=== PATIENT | male | born 1950 | race Caucasian/White ===

== ENCOUNTER 2018-09-08 13:26 | Inpatient (IN) | payer OTHER ==
[~2018-09-08] VITALS: Ht 160 cm; Wt 97.1 kg
[2018-09-08] MEDS ORDERED: NACL 0.9% 1,000 ML IV ONE (13:29)
[2018-09-08 13:33] VITALS: BP_SYST 130
[2018-09-08 14:03] LABS: BASOPHILS # (AUTO) 0.3 K/uL (0.0-0.2); BASOPHILS % (AUTO) 2.5 % (0.0-2.0); EOSINOPHILS # (AUTO) 0.2 K/uL (0.0-0.4); EOSINOPHILS % (AUTO) 1.1 % (0.0-4.0); HEMATOCRIT 42.8 % (36-54); HEMOGLOBIN 14.5 g/dL (14.0-18.0); LYMPHOCYTES # (AUTO) 1.4 K/uL (1.0-5.5); LYMPHOCYTES % (AUTO) 10.3 % (20.5-51.5); MEAN CORPUSCULAR HEMOGLOBIN 32 pg (27-31); MEAN CORPUSCULAR HGB CONC 34 % (32-36); MEAN CORPUSCULAR VOLUME 96 fL (79.0-98.0); MONOCYTES # (AUTO) 1.1 K/uL (0.0-1.0); MONOCYTES % (AUTO) 7.7 % (1.7-9.3); NEUTROPHILS # (AUTO) 10.9 K/uL (1.8-7.7); NEUTROPHILS % (AUTO) 78.4 % (40.0-70.0); PLATELET COUNT (AUTO) 248 K/uL (130-430); RED BLOOD CELL COUNT(AUTO) 4.49 MIL/uL (4.2-6.2); RED CELL DISTRIBUTION WIDTH 12.9 % (9.0-15.0); WHITE BLOOD COUNT (AUTO) 13.9 K/uL (4.8-10.8)
[2018-09-08 14:21] LABS: ANION GAP 7 (5-15); CALCIUM 9.4 mg/dL (8.4-11.0); CHLORIDE 102 mmol/L (98-107); CREATININE 1.07 mg/dL (0.55-1.30); GLUCOSE 105 mg/dL (70-99); POTASSIUM 3.6 mmol/L (3.5-5.1); SODIUM SERUM 136 mmol/L (136-145); UREA NITROGEN, BLOOD 30 mg/dL (8-21)
[2018-09-08 14:23] LABS: GFR AFRICAN AMERICAN 88 mL/min (>90)
[2018-09-08 14:26] LABS: INR 0.9 (0.80-1.20); PROTHROMBIN TIME 9.7 SECS (9.5-12.5)
[2018-09-08 14:27] LABS: ALANINE AMINOTRANSFERASE 50 U/L (12-78); ALBUMIN 3.3 g/dL (3.4-4.8); ASPARTATE AMINOTRANSFERASE 28 U/L (10-37); TOTAL BILIRUBIN 0.5 mg/dL (0.0-1.0)
[2018-09-08 14:28] LABS: ALCOHOL, BLOOD < 3 mg/dL (<10); LIPASE 155 U/L (73-393)
[2018-09-08 15:33] LABS: BILIRUBIN,URINE NEGATIVE (NEGATIVE); BLOOD, URINE NEGATIVE (NEGATIVE); CLARITY/URINE CLEAR (CLEAR); COLOR,URINE YELLOW (YELLOW); GLUCOSE,URINE NEGATIVE (NEGATIVE); KETONES,URINE NEGATIVE (NEGATIVE); LEUKOCYTE ESTERASE ,URINE NEGATIVE (NEGATIVE); NITRITE, URINE NEGATIVE (NEGATIVE); PH,URINE 5.5 (5.0-8.0); PROTEIN URINE NEGATIVE (NEGATIVE); UROBILINOGEN,URINE 0.2 (0.2-1.0)
[2018-09-08 15:53] LABS: BARBITURATE, URINE NEGATIVE (NEG <=200); BENZODIAZEPINE, URINE NEGATIVE (NEG <=150); CANNABINOID, URINE POSITIVE (NEG <=50); COCAINE, URINE NEGATIVE (NEG <=150); METHAMPHETAMINES SCREEN,URINE NEGATIVE (NEG <=500); OPIATE, URINE NEGATIVE (NEG <=100); PHENCYCLIDINE SCREEN,URINE NEGATIVE (NEG <=25); UR TRICYCLIC ANTIDEPRESSANTS NEGATIVE (NEG <=300); URINE AMPHETAMINE NEGATIVE (NEG <=500); URINE METHADONE NEGATIVE (NEG <=200); URINE OXYCODONE SCREEN NEGATIVE (NEG <=100); URINE PROPOXYPHENE SCREEN NEGATIVE (NEG <=300)
[2018-09-08] MEDS ORDERED: ACETAMINOPHEN 325 MG TABLET PO PRN (16:30)
[2018-09-08] MEDS ORDERED: ONDANSETRON HCL 4 MG/2 ML VIAL IVP PRN (16:30)
[2018-09-08] MEDS ORDERED: LOSA50TA3 PO (16:46)
[2018-09-08] MEDS ORDERED: FURO-150 PO (16:46)
[2018-09-08] MEDS ORDERED: PRO40 PO (16:49)
[2018-09-08] MEDS ORDERED: NIFE60TA83 PO (16:49)
[2018-09-08] MEDS ORDERED: TAMS-11 PO (16:49)
[2018-09-08] MEDS ORDERED: SILD50TA PO (16:49)
[2018-09-08] MEDS ORDERED: LOVA20TA2 PO (16:49)
[2018-09-08] MEDS ORDERED: OXYB10TA4 PO (16:49)
[2018-09-08 16:59] VITALS: BP_SYST 146
[2018-09-08 19:18] VITALS: BP_SYST 136
[2018-09-08] MEDS: ceFAZolin SODIUM 1 GM in D5W 50 ML IV SCH (22:00)
[2018-09-08] MEDS ORDERED: CEFAZOLIN 1 GM IVPB PREMIX 100 ML IV ONE (22:37)
[2018-09-09 00:15] VITALS: BP_SYST 120
[2018-09-09] MEDS: ceFAZolin SODIUM 1 GM in D5W 50 ML IV SCH ×3 (05:21→22:42)
[2018-09-09 08:00] VITALS: BP_SYST 127
[2018-09-09] MEDS: ENOXAPARIN SODIUM 40 MG/0.4 ML SYRINGE SUBCUT SCH (08:47)
[2018-09-09] MEDS ORDERED: OXYBUTYNIN CHLORIDE 5 MG XL TAB PO SCH (09:30)
[2018-09-09] MEDS ORDERED: LOVASTATIN 20 MG TABLET PO SCH (09:30)
[2018-09-09] MEDS ORDERED: FUROSEMIDE 40 MG/4 ML VIAL IVP ONE (10:00)
[2018-09-09] MEDS ORDERED: SIMVASTATIN 10 MG TABLET PO SCH (10:00)
[2018-09-09] MEDS ORDERED: NIFEDIPINE 60 MG TABLET.SA (PROCARDIA XL 60 MG) PO ONE (10:30)
[2018-09-09] MEDS ORDERED: SIMVASTATIN 10 MG TABLET PO ONE (10:30)
[2018-09-09] MEDS ORDERED: PANTOPRAZOLE SODIUM 40 MG TAB PO ONE (10:30)
[2018-09-09] MEDS ORDERED: OXYBUTYNIN CHLORIDE 5 MG TABLET PO ONE (10:30)
[2018-09-09] MEDS ORDERED: FAMOTIDINE 20 MG TABLET PO ONE (10:30)
[2018-09-09] MEDS ORDERED: LOSARTAN POTASSIUM 50 MG TABLET (COZAAR) PO ONE (10:30)
[2018-09-09] MEDS ORDERED: VANCOMYCIN HCL 750 MG in NS 250 ML IV ONE (10:30)
[2018-09-09] MEDS: OXYBUTYNIN CHLORIDE 5 MG TABLET PO SCH ×2 (10:52→21:44)
[2018-09-09] MEDS: LOSARTAN POTASSIUM 50 MG TABLET (COZAAR) PO SCH (10:53)
[2018-09-09] MEDS: NIFEDIPINE 60 MG TABLET.SA (PROCARDIA XL 60 MG) PO SCH (10:53)
[2018-09-09] MEDS: FAMOTIDINE 20 MG TABLET PO SCH ×2 (10:53→21:45)
[2018-09-09] MEDS: PANTOPRAZOLE SODIUM 40 MG TAB PO SCH (11:34)
[2018-09-09 12:00] VITALS: BP_SYST 139
[2018-09-09 16:00] VITALS: BP_SYST 137
[2018-09-09 20:00] VITALS: BP_SYST 137
[2018-09-09] MEDS ORDERED: CEFAZOLIN 1 GM IVPB PREMIX 100 ML IV ONE (22:00)
[2018-09-10 04:19] VITALS: BP_SYST 126
[2018-09-10] MEDS: ceFAZolin SODIUM 1 GM in D5W 50 ML IV SCH ×3 (06:14→21:38)
[2018-09-10 08:03] VITALS: BP_SYST 141
[2018-09-10] MEDS ORDERED: VANCOMYCIN HCL 1 GM/NS PREMIX 250 ML IV ONE (09:00)
[2018-09-10] MEDS: ENOXAPARIN SODIUM 40 MG/0.4 ML SYRINGE SUBCUT SCH (10:12)
[2018-09-10] MEDS: OXYBUTYNIN CHLORIDE 5 MG TABLET PO SCH ×2 (10:12→20:34)
[2018-09-10] MEDS: LOSARTAN POTASSIUM 50 MG TABLET (COZAAR) PO SCH (10:13)
[2018-09-10] MEDS: NIFEDIPINE 60 MG TABLET.SA (PROCARDIA XL 60 MG) PO SCH (10:14)
[2018-09-10] MEDS: TAMSULOSIN HCL 0.4 MG CAP PO SCH (10:14)
[2018-09-10] MEDS: PANTOPRAZOLE SODIUM 40 MG TAB PO SCH (10:14)
[2018-09-10] MEDS: FAMOTIDINE 20 MG TABLET PO SCH ×2 (10:14→20:34)
[2018-09-10] MEDS: FUROSEMIDE 20 MG TABLET PO SCH (10:14)
[2018-09-10 12:37] VITALS: BP_SYST 142
[2018-09-10 16:56] VITALS: BP_SYST 136
[2018-09-10] MEDS ORDERED: SIMVASTATIN 10 MG TABLET PO SCH (18:00)
[2018-09-10 20:30] VITALS: BP_SYST 149
[2018-09-11 01:49] VITALS: BP_SYST 108
[2018-09-11] MEDS: ceFAZolin SODIUM 1 GM in D5W 50 ML IV SCH ×2 (05:19→14:48)
[2018-09-11 07:35] LABS: BASOPHILS % (AUTO) 0.1 % (0.0-2.0); EOSINOPHILS # (AUTO) 0.3 K/uL (0.0-0.4); EOSINOPHILS % (AUTO) 2.5 % (0.0-4.0); HEMATOCRIT 42.8 % (36-54); LYMPHOCYTES # (AUTO) 1.4 K/uL (1.0-5.5); LYMPHOCYTES % (AUTO) 13.7 % (20.5-51.5); MEAN CORPUSCULAR HEMOGLOBIN 32 pg (27-31); MEAN CORPUSCULAR HGB CONC 33 % (32-36); MEAN CORPUSCULAR VOLUME 97 fL (79.0-98.0); MONOCYTES # (AUTO) 0.6 K/uL (0.0-1.0); MONOCYTES % (AUTO) 5.6 % (1.7-9.3); NEUTROPHILS # (AUTO) 8.1 K/uL (1.8-7.7); NEUTROPHILS % (AUTO) 78.1 % (40.0-70.0); PLATELET COUNT (AUTO) 387 K/uL (130-430); RED BLOOD CELL COUNT(AUTO) 4.41 MIL/uL (4.2-6.2); RED CELL DISTRIBUTION WIDTH 12.4 % (9.0-15.0); WHITE BLOOD COUNT (AUTO) 10.4 K/uL (4.8-10.8)
[2018-09-11 07:37] LABS: CALCIUM 9.1 mg/dL (8.4-11.0); CREATININE 0.89 mg/dL (0.55-1.30); POTASSIUM 3.7 mmol/L (3.5-5.1); TOTAL BILIRUBIN 0.3 mg/dL (0.0-1.0)
[2018-09-11] MEDS ORDERED: FUROSEMIDE 40 MG/4 ML VIAL IVP ONE (08:00)
[2018-09-11 08:02] VITALS: BP_SYST 130
[2018-09-11] MEDS: TAMSULOSIN HCL 0.4 MG CAP PO SCH (09:09)
[2018-09-11] MEDS: FUROSEMIDE 20 MG TABLET PO SCH (09:10)
[2018-09-11] MEDS: PANTOPRAZOLE SODIUM 40 MG TAB PO SCH (09:10)
[2018-09-11] MEDS: LOSARTAN POTASSIUM 50 MG TABLET (COZAAR) PO SCH (09:10)
[2018-09-11] MEDS: FAMOTIDINE 20 MG TABLET PO SCH (09:10)
[2018-09-11] MEDS: NIFEDIPINE 60 MG TABLET.SA (PROCARDIA XL 60 MG) PO SCH (09:11)
[2018-09-11] MEDS: ENOXAPARIN SODIUM 40 MG/0.4 ML SYRINGE SUBCUT SCH (09:14)
[2018-09-11] MEDS: OXYBUTYNIN CHLORIDE 5 MG TABLET PO SCH (09:16)
[2018-09-11 12:14] VITALS: BP_SYST 132
[2018-09-11 16:22] VITALS: BP_SYST 133
[2018-09-11 17:32] VITALS: BP_SYST 133
== END 2018-09-11 18:30 | disposition home or self-care (01) | DRG 872 ==
LOC: SED 13:26 → SMU 16:26
PROVIDERS: ADMIT Internal Medicine; ATTEND Internal Medicine
DX: A41.9 Sepsis, unspecified organism (principal); L03.115 Cellulitis of right lower limb; E66.9 Obesity, unspecified; E78.5 Hyperlipidemia, unspecified; I10 Essential (primary) hypertension; I87.2 Venous insufficiency (chronic) (peripheral); I73.9 Peripheral vascular disease, unspecified; Z68.37 Body mass index [BMI] 37.0-37.9, adult; N40.0 Benign prostatic hyperplasia without lower urinary tract symptoms
CPT/HCPCS: 36415; 71045; 73700-TC; 80053; 80307; 81003; 82550-TC; 83690-TC; 84484; 85025; 85379; 85610-TC; 85730-TC; 93005; 93971; 99285; G0482; J0690; J1650; J1940; J3370; J7050; J7060

== ENCOUNTER 2019-08-20 08:37 | Inpatient (IN) | payer OTHER ==
[~2019-08-20] VITALS: Ht 160 cm; Wt 95.3 kg
[~2019-08-20 08:37] MED LIST: FURO-150 PO; LOSA50TA3 PO; LOVA20TA2 PO; NIFE60TA83 PO; OXYB10TA4 PO; PRO40 PO; SILD50TA PO; TAMS-11 PO
[2019-08-20 08:48] VITALS: BP_SYST 143
--- NOTE | 2019-08-20 08:50 | NUR ---
pt arrives from home w/ c/o cough and congestion x 2 weeks. Pt has been using over the counter meds w/ out relief. Pt does have hx of COPD. States he has an oxygen tank at home, however, does not use it. O2 sat is 87%. o2 2l via NC placed.
--- NOTE | 2019-08-20 09:02 | NUR ---
ER at bedside examining patient.
--- NOTE | 2019-08-20 09:30 | NUR ---
# 22 gauge angiocath placed to LAC Use of asceptic technique. Opsite placed over site. Blood return noted. Blood for lab drawn from site. Flushed with 10 cc of normal saline. No evidence of infiltration noted. Patient tolerated well.
[2019-08-20 09:39] LABS: BASOPHILS % (AUTO) 0.4 % (0.0-2.0); EOSINOPHILS # (AUTO) 0.2 K/uL (0.0-0.4); EOSINOPHILS % (AUTO) 2.7 % (0.0-4.0); HEMATOCRIT 47.1 % (36-54); HEMOGLOBIN 15.8 g/dL (14.0-18.0); LYMPHOCYTES # (AUTO) 1.4 K/uL (1.0-5.5); LYMPHOCYTES % (AUTO) 16.8 % (20.5-51.5); MEAN CORPUSCULAR HEMOGLOBIN 34 pg (27-31); MEAN CORPUSCULAR HGB CONC 34 % (32-36); MEAN CORPUSCULAR VOLUME 100 fL (79.0-98.0); MONOCYTES # (AUTO) 0.4 K/uL (0.0-1.0); MONOCYTES % (AUTO) 4.9 % (1.7-9.3); NEUTROPHILS # (AUTO) 6.2 K/uL (1.8-7.7); NEUTROPHILS % (AUTO) 75.2 % (40.0-70.0); PLATELET COUNT (AUTO) 190 K/uL (130-430); RED BLOOD CELL COUNT(AUTO) 4.72 MIL/uL (4.2-6.2); RED CELL DISTRIBUTION WIDTH 13.6 % (9.0-15.0); WHITE BLOOD COUNT (AUTO) 8.3 K/uL (4.8-10.8)
[2019-08-20 09:48] LABS: CALCIUM 8.9 mg/dL (8.4-11.0); CREATININE 0.73 mg/dL (0.55-1.30); POTASSIUM 3.6 mmol/L (3.5-5.1)
[2019-08-20 09:54] LABS: ALBUMIN 4.1 g/dL (3.4-4.8); TOTAL BILIRUBIN 0.4 mg/dL (0.0-1.0)
[2019-08-20] MEDS ORDERED: IPRATROPIUM/ALBUTEROL SULFATE 3 ML AMPUL.NEB (DUONEB) INH ONE (10:00)
--- NOTE | 2019-08-20 10:07 | NUR ---
Medication reconciliation completed with information provided by patient. Any prior medication reconciliation on file was reviewed and corrected.
--- NOTE | 2019-08-20 11:21 | NUR ---
Patient will be admitted to care of Dr. Varghese. Admitted to telemetry unit. Will go to room 126A. Belongings list completed. Summary report printed. Report will be given at bedside.
[2019-08-20] MEDS ORDERED: methylPREDNISolone SOD SUCC/PF 62.5 MG/ML VIAL IVP ONE (11:30)
--- NOTE | 2019-08-20 11:42 | NUR ---
ADMISSION: Received from ER on a [facility] with the diagnosis of COPD Exacerbation. Patient Oriented x4, ambulatory from [facility] to be with steady gait. Denies shortness of breath. Oriented to room. Call light within reach.
[2019-08-20 11:46] VITALS: BP_SYST 163
--- NOTE | 2019-08-20 11:48 | NUR ---
Note undone in EDM - 08/20/19 at 1159 by AYALA Patient to be transferred to []. Is being transferred due to higher level of care. Receiving facility has accepting physician and available space. ER physician has signed transfer form. Patient or responsible alliance party has agreed to transfer and signed form. Patient belongings inventoried and will be sent with patient. Copy of nursing notes, lab reports, EKG, Physicians Orders and X-rays to be sent with patient. Report called to [] at receiving facility. Receiving physician is []. [] ambulance service has been called for transfer. ETA is [].
--- NOTE | 2019-08-20 11:48 | NUR ---
Patient will be admitted to care of Dr. alcala. Admitted to tele unit. Will go to room 126-a Belongings list completed. Summary report printed. Bedside report given to Ysabel
--- NOTE | 2019-08-20 12:00 | NUR ---
Note Received report from Ysabel rene RN. Pt and his were oriented to nursing routines and procedures. Call light was given to pt with instructions on how to use it. Pt had tele unit attached on admission to floor.
--- NOTE | 2019-08-20 12:42 | NUR ---
CONSULT PULMONOLOGY COPD EXACERBATION DR NOVOA [phone] S/W ANEL EXCHANGE
[2019-08-20] MEDS ORDERED: ALBUTEROL SULFATE 0.083% 2.5 MG/3 ML VIAL.NEB INH PRN (15:15)
[2019-08-20] MEDS ORDERED: IPRATROPIUM BROM 0.5 MG/2.5 ML VIAL.NEB (ATROVENT) INH PRN (15:15)
[2019-08-20 16:00] VITALS: BP_SYST 159
[2019-08-20] MEDS ORDERED: NIFEDIPINE 30 MG TAB.ER.24 PO ONE (16:15)
[2019-08-20] MEDS ORDERED: LOSARTAN POTASSIUM 50 MG TABLET (COZAAR) PO ONE (16:15)
[2019-08-20 16:36] VITALS: BP_SYST 159
[2019-08-20] MEDS: cefTRIAXone 1 GM in D5W 50 ML IV SCH (16:40)
[2019-08-20] MEDS: AZITHROMYCIN 500 MG in NS 250 ML IV SCH (17:31)
[2019-08-20] MEDS: TAMSULOSIN HCL 0.4 MG CAP PO SCH (17:31)
--- NOTE | 2019-08-20 17:45 | NUR ---
Note Pt has been sitting up in BS chair off and on all shift. IVPB antibiotics infusing well through right AC IV site. Pt is independent in ambulating to restroom or in/out of bed. Pt had US Venous Doppler of Bilateral lower extremities done at bedside. No needs noted. Call light within reach.
--- NOTE | 2019-08-20 18:40 | NUR ---
Note Pt sitting up in BS chair, states he will eat his dinner in a little while. No SOB/resp distress or pain/discomfort noted at this time. Pt has O2 at 2L/nc on all shift. Tele unit attached and intact at this time. Pt was checked on q1' and PRN all shift for needs and care. IVPB antibiotics infusing well through right AC IV site. No needs noted at this time. Call light within reach.
--- NOTE | 2019-08-20 19:15 | NUR ---
CHANGE OF SHIFT; pt. up in chair when received. IV antibiotic still infusing. denies any pain at this time.O2 on @ 2l/nc. instructed to call and use of call light when help needed and verbalized understanding. will assess later.
[2019-08-20] MEDS: IPRATROPIUM BROM 0.5 MG/2.5 ML VIAL.NEB (ATROVENT) INH SCH (20:11)
[2019-08-20] MEDS: ALBUTEROL SULFATE 0.083% 2.5 MG/3 ML VIAL.NEB INH SCH (20:12)
[2019-08-20 20:30] VITALS: BP_SYST 141
--- NOTE | 2019-08-20 20:30 | NUR ---
NOTES: remain sitting, awake, alert and oriented. breathing treatment was just done, occ. bouts of non productive cough noted. moves all extremities well, noted swelling on lower extremities. O@ continuous. on cardiac pattern on sinus rhythm. IV lock on rt. antecubital.call light within reach.
--- NOTE | 2019-08-20 22:00 | NUR ---
NOTES: pt. still up in chair, watching tv. due med given. pt. needs attended.
[2019-08-20] MEDS: methylPREDNISolone SOD SUCC/PF 62.5 MG/ML VIAL IVP SCH (22:41)
--- NOTE | 2019-08-21 | NUR ---
NOTES: still awake, no complaints. call light at bedside.
[2019-08-21 00:30] VITALS: BP_SYST 131
[2019-08-21] MEDS: IPRATROPIUM BROM 0.5 MG/2.5 ML VIAL.NEB (ATROVENT) INH SCH ×4 (01:24→20:36)
[2019-08-21] MEDS: ALBUTEROL SULFATE 0.083% 2.5 MG/3 ML VIAL.NEB INH SCH ×4 (01:24→20:36)
--- NOTE | 2019-08-21 02:15 | NUR ---
NOTES: made rounds and pt. in bed sleeping. no acute distress. cardiac pattern unchanged.
--- NOTE | 2019-08-21 04:30 | NUR ---
NOTES: condition unchanged. pt. sound asleep.
--- NOTE | 2019-08-21 06:00 | NUR ---
NOTES: awakened for due med. no complaints manifested.
[2019-08-21] MEDS: methylPREDNISolone SOD SUCC/PF 62.5 MG/ML VIAL IVP SCH ×3 (06:39→22:00)
--- NOTE | 2019-08-21 06:45 | NUR ---
CLOSING NOTES; pt. been sleeping, IV lock flushed and keep patent. repositioned self for comfort. call light within reach. for further care and observation. will endorse to day shift.
--- NOTE | 2019-08-21 07:30 | NUR ---
had breathing treatment on board noted.
[2019-08-21 07:45] VITALS: BP_SYST 138
[2019-08-21] MEDS: NIFEDIPINE 30 MG TAB.ER.24 PO SCH (08:31)
[2019-08-21] MEDS: LOSARTAN POTASSIUM 50 MG TABLET (COZAAR) PO SCH (08:31)
--- NOTE | 2019-08-21 08:32 | NUR ---
had eaten breakfast 85% of food consumed. stable sitting on the chair. no sob noted.
--- NOTE | 2019-08-21 08:34 | NUR ---
due medication given at this time.
--- NOTE | 2019-08-21 10:00 | NUR ---
sitting on the chair. no sob noted. watching tv.
--- NOTE | 2019-08-21 12:00 | NUR ---
had lunch eat 80% food
[2019-08-21 13:16] VITALS: BP_SYST 149
--- NOTE | 2019-08-21 14:45 | NUR ---
solumedrol 60 mg iv given. made comfortable. assists on adls.
[2019-08-21] MEDS: cefTRIAXone 1 GM in D5W 50 ML IV SCH (16:25)
--- NOTE | 2019-08-21 16:29 | NUR ---
rocephin iv given at this time. patient sleeping. non productive cough noted.
[2019-08-21 17:14] VITALS: BP_SYST 134
[2019-08-21] MEDS: TAMSULOSIN HCL 0.4 MG CAP PO SCH (17:28)
[2019-08-21] MEDS: AZITHROMYCIN 500 MG in NS 250 ML IV SCH (17:29)
--- NOTE | 2019-08-21 17:30 | NUR ---
azithromycin iv given at this time. assists to the bathroom.
--- NOTE | 2019-08-21 18:40 | NUR ---
start to have dinner at this time. waiting for the to come.
--- NOTE | 2019-08-21 19:20 | NUR ---
endorsed to incoming nurse Lucila QUICK
--- NOTE | 2019-08-21 19:25 | NUR ---
CHANGE OF SHIFT; pt. up in chair when received, with visitor at bedside. denies any shortness of breath. no acute distress. call light within reach. will assess later.
[2019-08-21 20:00] VITALS: BP_SYST 132
--- NOTE | 2019-08-21 20:00 | NUR ---
NOTES: IV lock, flushed, dressing intact. VS checked, O2 sat 92-93%, placed O@ back @ 2l/nc, instructed on deep breathing. bouts of non productive cough. ambulates to the restroom. needs attended. on quality assurance monitor body and shows sinus rhythm. call light within reach.
--- NOTE | 2019-08-21 22:09 | NUR ---
NOTES: still up in chair,playing solitaire. due med given. noted bouts of no productive cough. O2 on @ 2l/nc.
--- NOTE | 2019-08-22 | NUR ---
NOTES: pt. back to bed. dozing off.
--- NOTE | 2019-08-22 01:30 | NUR ---
NOTES: awakened, needs to change battery on his tele box, up in chair and VS checked.
[2019-08-22 01:39] VITALS: BP_SYST 128
[2019-08-22] MEDS: ALBUTEROL SULFATE 0.083% 2.5 MG/3 ML VIAL.NEB INH SCH ×3 (02:10→13:47)
[2019-08-22] MEDS: IPRATROPIUM BROM 0.5 MG/2.5 ML VIAL.NEB (ATROVENT) INH SCH ×3 (02:10→13:47)
--- NOTE | 2019-08-22 04:00 | NUR ---
NOTES: condition unchanged . continue to monitor. pt. sleeping.
--- NOTE | 2019-08-22 06:00 | NUR ---
NOTES: remain sleeping, no acute distress.
[2019-08-22] MEDS: methylPREDNISolone SOD SUCC/PF 62.5 MG/ML VIAL IVP SCH ×2 (06:42→14:43)
--- NOTE | 2019-08-22 06:44 | NUR ---
CLOSING NOTES; pt. awkened for due medication. IV lock patent and flushing good. no complaints noted. still with occ. bout of non productive cough. for further assistance, will endorse to day shift.
--- NOTE | 2019-08-22 07:15 | NUR ---
[facility] aaox 4. has oxygen 2 lnc. breathing even and unlabored. has breathing treatment on board. abdomen soft and non distended. has iv access rt ac #22. saline lock. no sob nor pain noted. bed low position, alarmed and locked. call lights within reach. instructed to call for assistance.
--- NOTE | 2019-08-22 08:00 | NUR ---
having breakfast at this time. no sob noted. no complained made so far.
[2019-08-22 08:11] VITALS: BP_SYST 139
[2019-08-22] MEDS: LOSARTAN POTASSIUM 50 MG TABLET (COZAAR) PO SCH (08:28)
[2019-08-22] MEDS: NIFEDIPINE 30 MG TAB.ER.24 PO SCH (08:28)
--- NOTE | 2019-08-22 10:00 | NUR ---
due medication given as ordered.
[2019-08-22 12:00] VITALS: BP_SYST 139
--- NOTE | 2019-08-22 12:00 | NUR ---
had lunch on the bedside. while watching tv.
--- NOTE | 2019-08-22 14:00 | NUR ---
watching tv. no complained made so far.
[2019-08-22] MEDS ORDERED: PRED20TA PO (14:53)
[2019-08-22] MEDS ORDERED: ALBU2.5V7 INH (14:53)
[2019-08-22] MEDS ORDERED: IPRA0.2S53 INH (14:53)
[2019-08-22] MEDS ORDERED: AMOX-426 PO (14:53)
[2019-08-22] MEDS: cefTRIAXone 1 GM in D5W 50 ML IV SCH (14:53)
[2019-08-22] MEDS: AZITHROMYCIN 500 MG in NS 250 ML IV SCH (15:56)
[2019-08-22 16:04] VITALS: BP_SYST 134
[2019-08-22 16:30] VITALS: BP_SYST 140
--- NOTE | 2019-08-22 16:30 | NUR ---
equipment monitor phototypesetting removed. scdh i d band removed.
--- NOTE | 2019-08-22 17:00 | NUR ---
discharge summary signed by the patient. discharge instruction given to the patient follow up care Dr Toi castillo and medication with indication, dose, frequency and time and side effects.
--- NOTE | 2019-08-22 17:18 | NUR ---
REFUSED TO HAVE FLU SHOT DUE TO COUGHING.
--- NOTE | 2019-08-22 17:21 | NUR ---
awaiting for the family to pick him up
--- NOTE | 2019-08-22 18:00 | NUR ---
family mixing picker tender at this time. and had dinner. left walking refused to have wheelchair. said i am okay and stable. patient went home. manager cardiac cath, scdh i d band and iv access removed at this time.
== END 2019-08-22 18:00 | disposition home or self-care (01) | DRG 189 ==
LOC: SED 08:37 → STU 11:13
PROVIDERS: ADMIT Internal Medicine Hospice and Palliative Medicine; ATTEND Internal Medicine Hospice and Palliative Medicine
DX: J96.21 Acute and chronic respiratory failure with hypoxia (principal); J44.1 Chronic obstructive pulmonary disease with (acute) exacerbation; I10 Essential (primary) hypertension; E66.01 Morbid (severe) obesity due to excess calories; E78.5 Hyperlipidemia, unspecified; F12.90 Cannabis use, unspecified, uncomplicated; G47.33 Obstructive sleep apnea (adult) (pediatric); Z82.49 Family history of ischemic heart disease and other diseases of the circulatory system; Z83.3 Family history of diabetes mellitus; Z91.19 Patient's noncompliance with other medical treatment and regimen; Z99.81 Dependence on supplemental oxygen; Z79.899 Other long term (current) drug therapy; Z68.37 Body mass index [BMI] 37.0-37.9, adult
CPT/HCPCS: 36415; 36600; 71045; 80053; 82550-TC; 82803-TC; 83605; 83880; 84484; 85025; 87040-TC; 93005; 93306; 93970; 94640; 94760; 96374; 99285; G0378; J0456; J0696; J2930; J7050; J7060; J7613; J7620

== ENCOUNTER 2019-11-15 18:56 | Emergency (ER) | payer OTHER ==
[~2019-11-15] VITALS: Ht 160 cm; Wt 95.3 kg
[~2019-11-15 18:56] MED LIST changes: +ALBU2.5V7 INH; +AMOX-426 PO; -FURO-150 PO; +IPRA0.2S53 INH; -OXYB10TA4 PO; +PRED20TA PO; -PRO40 PO; -SILD50TA PO
[2019-11-15 19:26] VITALS: BP_SYST 157
[2019-11-15 21:53] LABS: BASOPHILS % (AUTO) 0.4 % (0.0-2.0); EOSINOPHILS # (AUTO) 0.4 K/uL (0.0-0.4); EOSINOPHILS % (AUTO) 4.6 % (0.0-4.0); HEMATOCRIT 45.5 % (36-54); HEMOGLOBIN 15.3 g/dL (14.0-18.0); LYMPHOCYTES # (AUTO) 1.3 K/uL (1.0-5.5); LYMPHOCYTES % (AUTO) 16.3 % (20.5-51.5); MEAN CORPUSCULAR HEMOGLOBIN 33 pg (27-31); MEAN CORPUSCULAR HGB CONC 34 % (32-36); MEAN CORPUSCULAR VOLUME 99 fL (79.0-98.0); MONOCYTES # (AUTO) 0.5 K/uL (0.0-1.0); NEUTROPHILS # (AUTO) 5.5 K/uL (1.8-7.7); NEUTROPHILS % (AUTO) 71.7 % (40.0-70.0); PLATELET COUNT (AUTO) 206 K/uL (130-430); RED BLOOD CELL COUNT(AUTO) 4.62 MIL/uL (4.2-6.2); RED CELL DISTRIBUTION WIDTH 13.4 % (9.0-15.0); WHITE BLOOD COUNT (AUTO) 7.7 K/uL (4.8-10.8)
[2019-11-15 22:02] LABS: CALCIUM 8.9 mg/dL (8.4-11.0); CREATININE 0.8 mg/dL (0.55-1.30)
[2019-11-15 22:08] LABS: ALBUMIN 3.9 g/dL (3.4-4.8); TOTAL BILIRUBIN 0.4 mg/dL (0.0-1.0)
[2019-11-16] MEDS ORDERED: VANCOMYCIN HCL 1,000 MG in NS 250 ML IV ONE (00:15)
[2019-11-16 01:08] LABS: BILIRUBIN,URINE NEGATIVE (NEGATIVE); BLOOD, URINE NEGATIVE (NEGATIVE); CLARITY/URINE CLEAR (CLEAR); COLOR,URINE YELLOW (YELLOW); GLUCOSE,URINE NEGATIVE (NEGATIVE); KETONES,URINE NEGATIVE (NEGATIVE); LEUKOCYTE ESTERASE ,URINE NEGATIVE (NEGATIVE); NITRITE, URINE NEGATIVE (NEGATIVE); PROTEIN URINE NEGATIVE (NEGATIVE); UROBILINOGEN,URINE 0.2 (0.2-1.0)
[2019-11-16] MEDS ORDERED: CEPHALEXIN 125 MG/5 ML, 100 ML BTL PO ONE (01:15)
[2019-11-16 01:19] VITALS: BP_SYST 146
[2019-11-16] MEDS ORDERED: CEPHALEXIN 500 MG CAPSULE ONE (01:31)
== END 2019-11-16 01:19 | disposition home or self-care (01) ==
LOC: SED 18:56
DX: L03.116 Cellulitis of left lower limb (principal); J44.9 Chronic obstructive pulmonary disease, unspecified; I10 Essential (primary) hypertension; E78.5 Hyperlipidemia, unspecified; Z79.899 Other long term (current) drug therapy
CPT/HCPCS: 36415; 73590-TC; 80053; 81003; 83605; 83880; 84484; 85025; 87040-TC; 93005; 93971; 99285

== ENCOUNTER 2019-11-29 20:12 | Inpatient (IN) | payer OTHER ==
[~2019-11-29] VITALS: Ht 160 cm; Wt 101.6 kg
[2019-11-29 20:30] VITALS: BP_SYST 132
[2019-11-29] MEDS ORDERED: methylPREDNISolone SOD SUCC/PF 62.5 MG/ML VIAL IM ONE (22:30)
[2019-11-29 22:43] LABS: BASOPHILS % (AUTO) 0.2 % (0.0-2.0); EOSINOPHILS # (AUTO) 1.3 K/uL (0.0-0.4); EOSINOPHILS % (AUTO) 13.4 % (0.0-4.0); HEMOGLOBIN 15.3 g/dL (14.0-18.0); LYMPHOCYTES # (AUTO) 0.8 K/uL (1.0-5.5); LYMPHOCYTES % (AUTO) 7.8 % (20.5-51.5); MEAN CORPUSCULAR HEMOGLOBIN 33 pg (27-31); MEAN CORPUSCULAR HGB CONC 33 % (32-36); MEAN CORPUSCULAR VOLUME 100 fL (79.0-98.0); MONOCYTES % (AUTO) 10.2 % (1.7-9.3); NEUTROPHILS # (AUTO) 6.6 K/uL (1.8-7.7); NEUTROPHILS % (AUTO) 68.4 % (40.0-70.0); PLATELET COUNT (AUTO) 169 K/uL (130-430); RED CELL DISTRIBUTION WIDTH 13.8 % (9.0-15.0); WHITE BLOOD COUNT (AUTO) 9.6 K/uL (4.8-10.8)
[2019-11-29 22:55] LABS: CALCIUM 8.4 mg/dL (8.4-11.0); CREATININE 1.06 mg/dL (0.55-1.30); POTASSIUM 4.2 mmol/L (3.5-5.1)
[2019-11-29 23:06] LABS: ALBUMIN 3.2 g/dL (3.4-4.8); TOTAL BILIRUBIN 0.5 mg/dL (0.0-1.0)
[2019-11-30 01:20] LABS: BILIRUBIN,URINE NEGATIVE (NEGATIVE); BLOOD, URINE NEGATIVE (NEGATIVE); CLARITY/URINE CLEAR (CLEAR); COLOR,URINE YELLOW (YELLOW); GLUCOSE,URINE NEGATIVE (NEGATIVE); KETONES,URINE NEGATIVE (NEGATIVE); LEUKOCYTE ESTERASE ,URINE NEGATIVE (NEGATIVE); NITRITE, URINE NEGATIVE (NEGATIVE); PH,URINE 6.5 (5.0-8.0); PROTEIN URINE NEGATIVE (NEGATIVE)
[2019-11-30] MEDS ORDERED: ALBUTEROL SULFATE 0.083% 2.5 MG/3 ML VIAL.NEB INH PRN ×2 (02:00→02:15)
[2019-11-30] MEDS ORDERED: ACETAMINOPHEN 325 MG TABLET PO PRN (02:00)
[2019-11-30] MEDS ORDERED: HYDROcodone/ACETAMIN 10-325 MG TAB PO PRN (02:00)
[2019-11-30] MEDS ORDERED: HYDROcodone/ACETAMIN 5-325 MG TAB (NORCO/ VICODIN) PO PRN (02:00)
[2019-11-30 02:31] VITALS: BP_SYST 147
[2019-11-30] MEDS: DIPHENHYDRAMINE HCL 50 MG CAPSULE PO SCH ×6 (03:14→21:09)
[2019-11-30] MEDS ORDERED: DIPHENHYDRAMINE HCL 50 MG CAPSULE ONE (03:30)
[2019-11-30 06:43] LABS: BASOPHILS % (AUTO) 0.1 % (0.0-2.0); EOSINOPHILS # (AUTO) 0.1 K/uL (0.0-0.4); EOSINOPHILS % (AUTO) 1.1 % (0.0-4.0); HEMATOCRIT 47.2 % (36-54); HEMOGLOBIN 15.5 g/dL (14.0-18.0); LYMPHOCYTES # (AUTO) 0.5 K/uL (1.0-5.5); LYMPHOCYTES % (AUTO) 6.7 % (20.5-51.5); MEAN CORPUSCULAR HEMOGLOBIN 33 pg (27-31); MEAN CORPUSCULAR HGB CONC 33 % (32-36); MEAN CORPUSCULAR VOLUME 100 fL (79.0-98.0); MONOCYTES # (AUTO) 0.2 K/uL (0.0-1.0); MONOCYTES % (AUTO) 2.5 % (1.7-9.3); NEUTROPHILS % (AUTO) 89.6 % (40.0-70.0); PLATELET COUNT (AUTO) 179 K/uL (130-430); RED BLOOD CELL COUNT(AUTO) 4.72 MIL/uL (4.2-6.2); RED CELL DISTRIBUTION WIDTH 13.5 % (9.0-15.0); WHITE BLOOD COUNT (AUTO) 7.8 K/uL (4.8-10.8)
[2019-11-30] MEDS: IPRATROPIUM BROM 0.5 MG/2.5 ML VIAL.NEB (ATROVENT) INH SCH ×2 (07:00→19:50)
[2019-11-30 07:11] LABS: ALBUMIN 3.1 g/dL (3.4-4.8); CALCIUM 8.2 mg/dL (8.4-11.0); CREATININE 0.92 mg/dL (0.55-1.30); POTASSIUM 4.1 mmol/L (3.5-5.1); TOTAL BILIRUBIN 0.4 mg/dL (0.0-1.0)
[2019-11-30 08:09] VITALS: BP_SYST 143
[2019-11-30] MEDS: PREDNISONE 20 MG TABLET PO SCH (09:25)
[2019-11-30] MEDS: LOSARTAN POTASSIUM 50 MG TABLET (COZAAR) PO SCH (09:26)
[2019-11-30] MEDS: NIFEDIPINE 30 MG TAB.ER.24 PO SCH (09:26)
[2019-11-30 13:10] VITALS: BP_SYST 145
[2019-11-30] MEDS: guaiFENesin 200 MG/10 ML UDC PO PRN (13:49)
[2019-11-30 16:22] VITALS: BP_SYST 136
[2019-11-30] MEDS: ATORVASTATIN 10 MG TABLET PO SCH (17:12)
[2019-11-30] MEDS: TAMSULOSIN HCL 0.4 MG CAP PO SCH (17:12)
[2019-11-30 20:00] VITALS: BP_SYST 128
[2019-12-01] MEDS ORDERED: VANCOMYCIN HCL 1 GM/NS PREMIX 250 ML IV ONE (00:45)
[2019-12-01 00:46] VITALS: BP_SYST 140
[2019-12-01] MEDS: IPRATROPIUM BROM 0.5 MG/2.5 ML VIAL.NEB (ATROVENT) INH SCH ×4 (01:00→20:13)
[2019-12-01] MEDS ORDERED: VANCOMYCIN HCL 1000 MG/VIAL IV ONE (02:29)
[2019-12-01 07:34] VITALS: BP_SYST 123
[2019-12-01 08:40] LABS: BASOPHILS % (AUTO) 0.3 % (0.0-2.0); EOSINOPHILS # (AUTO) 0.7 K/uL (0.0-0.4); EOSINOPHILS % (AUTO) 8.3 % (0.0-4.0); HEMATOCRIT 45.9 % (36-54); LYMPHOCYTES # (AUTO) 1.1 K/uL (1.0-5.5); MEAN CORPUSCULAR HEMOGLOBIN 33 pg (27-31); MEAN CORPUSCULAR HGB CONC 33 % (32-36); MEAN CORPUSCULAR VOLUME 100 fL (79.0-98.0); MONOCYTES # (AUTO) 0.8 K/uL (0.0-1.0); MONOCYTES % (AUTO) 9.9 % (1.7-9.3); NEUTROPHILS # (AUTO) 5.6 K/uL (1.8-7.7); NEUTROPHILS % (AUTO) 68.5 % (40.0-70.0); PLATELET COUNT (AUTO) 204 K/uL (130-430); RED BLOOD CELL COUNT(AUTO) 4.58 MIL/uL (4.2-6.2); RED CELL DISTRIBUTION WIDTH 13.7 % (9.0-15.0); WHITE BLOOD COUNT (AUTO) 8.2 K/uL (4.8-10.8)
[2019-12-01 08:43] LABS: C-REACTIVE PROTEIN QUANT 4.1 mg/dL (0-0.5); CALCIUM 8.5 mg/dL (8.4-11.0); CREATININE 0.77 mg/dL (0.55-1.30); POTASSIUM 3.5 mmol/L (3.5-5.1)
[2019-12-01] MEDS: DIPHENHYDRAMINE HCL 50 MG CAPSULE PO SCH ×4 (08:49→20:47)
[2019-12-01] MEDS: NIFEDIPINE 30 MG TAB.ER.24 PO SCH (08:49)
[2019-12-01] MEDS: PREDNISONE 20 MG TABLET PO SCH (08:49)
[2019-12-01] MEDS: LOSARTAN POTASSIUM 50 MG TABLET (COZAAR) PO SCH (08:49)
[2019-12-01] MEDS: VANCOMYCIN HCL 1,750 MG in NS 500 ML IV SCH ×2 (08:51→20:49)
[2019-12-01 11:10] LABS: ERYTHROCYTE SEDIMENTATION RATE 12 MM/HR (0-15)
[2019-12-01] MEDS: guaiFENesin 200 MG/10 ML UDC PO PRN ×2 (11:38→20:59)
[2019-12-01] MEDS: VITS A AND D/WHITE PET/LANOLIN 113.4 GM TUBE TP SCH ×2 (12:05→20:49)
[2019-12-01 12:40] VITALS: BP_SYST 122
[2019-12-01 16:20] VITALS: BP_SYST 107
[2019-12-01] MEDS: TAMSULOSIN HCL 0.4 MG CAP PO SCH (17:09)
[2019-12-01] MEDS: ATORVASTATIN 10 MG TABLET PO SCH (17:09)
[2019-12-01 20:00] VITALS: BP_SYST 110
[2019-12-02] VITALS: BP_SYST 112
[2019-12-02] MEDS: IPRATROPIUM BROM 0.5 MG/2.5 ML VIAL.NEB (ATROVENT) INH SCH ×2 (01:00→07:00)
[2019-12-02 04:00] VITALS: BP_SYST 132
[2019-12-02 07:29] LABS: BASOPHILS % (AUTO) 0.2 % (0.0-2.0); EOSINOPHILS # (AUTO) 1.2 K/uL (0.0-0.4); EOSINOPHILS % (AUTO) 13.7 % (0.0-4.0); HEMATOCRIT 42.7 % (36-54); HEMOGLOBIN 14.1 g/dL (14.0-18.0); LYMPHOCYTES # (AUTO) 1.2 K/uL (1.0-5.5); LYMPHOCYTES % (AUTO) 13.7 % (20.5-51.5); MEAN CORPUSCULAR HEMOGLOBIN 33 pg (27-31); MEAN CORPUSCULAR HGB CONC 33 % (32-36); MEAN CORPUSCULAR VOLUME 100 fL (79.0-98.0); MONOCYTES # (AUTO) 0.8 K/uL (0.0-1.0); MONOCYTES % (AUTO) 9.4 % (1.7-9.3); NEUTROPHILS # (AUTO) 5.4 K/uL (1.8-7.7); PLATELET COUNT (AUTO) 222 K/uL (130-430); RED BLOOD CELL COUNT(AUTO) 4.28 MIL/uL (4.2-6.2); RED CELL DISTRIBUTION WIDTH 13.2 % (9.0-15.0); WHITE BLOOD COUNT (AUTO) 8.6 K/uL (4.8-10.8)
[2019-12-02 07:31] LABS: ALBUMIN 3.1 g/dL (3.4-4.8); C-REACTIVE PROTEIN QUANT 2.2 mg/dL (0-0.5); CALCIUM 8.3 mg/dL (8.4-11.0); CREATININE 0.74 mg/dL (0.55-1.30); POTASSIUM 3.4 mmol/L (3.5-5.1); TOTAL BILIRUBIN 0.3 mg/dL (0.0-1.0)
[2019-12-02] MEDS: PREDNISONE 20 MG TABLET PO SCH (07:57)
[2019-12-02] MEDS: DIPHENHYDRAMINE HCL 50 MG CAPSULE PO SCH ×2 (07:57→14:10)
[2019-12-02] MEDS: NIFEDIPINE 30 MG TAB.ER.24 PO SCH (07:58)
[2019-12-02] MEDS: LOSARTAN POTASSIUM 50 MG TABLET (COZAAR) PO SCH (07:58)
[2019-12-02 08:00] VITALS: BP_SYST 135
[2019-12-02] MEDS: VITS A AND D/WHITE PET/LANOLIN 113.4 GM TUBE TP SCH (08:12)
[2019-12-02] MEDS: VANCOMYCIN HCL 1,750 MG in NS 500 ML IV SCH (08:13)
[2019-12-02 09:54] LABS: ERYTHROCYTE SEDIMENTATION RATE 7 MM/HR (0-15)
[2019-12-02] MEDS ORDERED: LEVO500T89 PO (10:01)
[2019-12-02] MEDS ORDERED: LEVOFLOXACIN 500 MG/D5W 100 ML IV SCH (10:15)
[2019-12-02 10:25] VITALS: BP_SYST 135; BP_SYST 149
[2019-12-02 12:00] VITALS: BP_SYST 152
[2019-12-02 16:00] VITALS: BP_SYST 149
== END 2019-12-02 18:50 | disposition home health service (06) | DRG 602 ==
LOC: SED 20:12 → SMU 11-30 00:59
PROVIDERS: ADMIT Internal Medicine Hospice and Palliative Medicine; ATTEND Internal Medicine Hospice and Palliative Medicine
DX: L03.116 Cellulitis of left lower limb (principal); J18.9 Pneumonia, unspecified organism; J44.0 Chronic obstructive pulmonary disease with (acute) lower respiratory infection; L30.9 Dermatitis, unspecified; E66.9 Obesity, unspecified; E78.5 Hyperlipidemia, unspecified; I10 Essential (primary) hypertension; I89.0 Lymphedema, not elsewhere classified; L85.3 Xerosis cutis; N40.0 Benign prostatic hyperplasia without lower urinary tract symptoms; Z79.899 Other long term (current) drug therapy; Z68.39 Body mass index [BMI] 39.0-39.9, adult
CPT/HCPCS: 36415; 71045; 80048; 80053; 81003; 85025; 85651-TC; 86140; 86710; 87081; 93923; 93971; 94640; 94760; 96372; 99285; J1956; J2930; J3370; J7040; J7050; J7512; Q0163